=== PATIENT | female | born 1975 | race Two or more races ===

== ENCOUNTER 2023-09-08 12:47 | Emergency (ER) | payer OTHER ==
[~2023-09-08] VITALS: Ht 160 cm; Wt 106.1 kg
[~2023-09-08 12:47] MED LIST: CELEXA10 MG; SYNTHROID75 MCG
[2023-09-08 14:54] LABS: HEMATOCRIT 37.8 % (36.0-45.00); HEMOGLOBIN 12.6 g/dL (12.0-15.00); MEAN CELL VOLUME 79.5 fL (80.00-100.00); MEAN CORPUSCULAR HEMOGLOBIN 26.5 pg (27.00-32.0); MEAN CORPUSCULAR HGB CONC 33.4 g/dl (32.0-36.0); PLATELET COUNT 562 K/uL (150-450); RED BLOOD COUNT 4.76 M/uL (4.00-6.00); RED CELL DISTRIBUTION WIDTH 17.4 % (11.5-14.5)
[2023-09-08] MEDS ORDERED: METRONIDAZOLE/SODIUM CHLORIDE 500 MG/100 ML PIGGYBACK IV SCH (15:35)
[2023-09-08 15:42] LABS: PH,URINE 5.5 (5.0-8.0); URINE APPEARANCE Clear; URINE BILIRRUBIN Negative (NEGATIVE); URINE BLOOD Trace; URINE COLOR Yellow; URINE GLUCOSE Negative (NEGATIVE); URINE LEUKOCYTE Small; URINE NITRATE Negative; URINE PROTEIN Negative (NEGATIVE); URINE UROBILINOGEN 0.2 E.U./dl
[2023-09-08] MEDS ORDERED: CIPROFLOXACIN IN 5 % DEXTROSE 400 MG/200 ML PIGGYBAG IV ONE (15:45)
[2023-09-08 15:46] LABS: URINE EPITHELIAL CELLS 8.5 uL (0.0-38.8); URINE WBC 34.6 uL (0.0-23.2)
[2023-09-08 16:36] LABS: CALCIUM 9.2 mg/dL (8.5-10.1); CREATININE SERUM 0.68 mg/dL (0.55-1.02); GFR 93.57; POTASSIUM 4.16 mEq/L (3.5-5.1)
== END 2023-09-09 00:14 | disposition home or self-care (01) ==
LOC: ER 12:48
PROVIDERS: Emergency Medicine
DX: K42.9 Umbilical hernia without obstruction or gangrene (principal); N39.0 Urinary tract infection, site not specified; R10.9 Unspecified abdominal pain; E03.8 Other specified hypothyroidism; Z88.5 Allergy status to narcotic agent; Z91.013 Allergy to seafood
CPT/HCPCS: 36415; 74177; Q9965

== ENCOUNTER 2024-12-05 08:27 | Emergency (ER) | payer OTHER ==
[~2024-12-05] VITALS: Ht 160 cm; Wt 111.6 kg
[2024-12-05 09:03] VITALS: BP 137/83; O2SAT 98
[2024-12-05] MEDS ORDERED: PAXIL40 MG (09:08)
[2024-12-05] MEDS ORDERED: COZAAR25 MG (09:08)
[2024-12-05] MEDS ORDERED: SYNTHROID125 MCG (09:08)
[2024-12-05] MEDS ORDERED: LIPITOR20 MG PO (09:08)
[2024-12-05] MEDS ORDERED: BUSPIRONE HCL10 MG (09:09)
[2024-12-05] MEDS ORDERED: NEURONTIN800 MG PO (09:09)
[2024-12-05] MEDS ORDERED: RESTORIL15 M1 (09:10)
[2024-12-05] MEDS ORDERED: HYDROXYCHLOROQ200 MG PO (09:10)
[2024-12-05] MEDS ORDERED: CELEBREX400 MG (09:10)
[2024-12-05] MEDS ORDERED: JENTADUETO XR1 EACH (09:11)
[2024-12-05] MEDS ORDERED: LIPITOR20 MG (09:22)
[2024-12-05] MEDS ORDERED: NEURONTIN800 MG (09:23)
[2024-12-05] MEDS ORDERED: SOVUNA200 MG (09:24)
[2024-12-05] MEDS ORDERED: RESTORIL15 MG (09:24)
[2024-12-05] MEDS ORDERED: 0.9 % SODIUM CHLORIDE 1,000 ML IV SCH (10:15)
[2024-12-05] MEDS ORDERED: ONDANSETRON HCL 2 MG/ML VIAL IV ONE (10:15)
[2024-12-05] MEDS ORDERED: FAMOTIDINE/PF 20 MG/2 ML VIAL IV PUSH ONE (10:15)
[2024-12-05] MEDS ORDERED: ONDANSETRON HCL 2 MG/ML VIAL ONE (10:26)
[2024-12-05] MEDS ORDERED: FAMOTIDINE/PF 20 MG/2 ML VIAL ONE (10:26)
[2024-12-05 11:15] LABS: BASO % 0.5 % (0.1-1.2); EOS # 0.19 (0.04-0.54); EOS % 1.4 % (0.7-7.0); HEMATOCRIT 35.1 % (34.1-44.9); HEMOGLOBIN 11.6 g/dL (11.2-15.7); LYMPH # 2.18 (1.18-3.74); LYMPH % 16.5 % (19.3-53.1); MEAN CORPUSCULAR HEMOGLOBIN 25.4 pg (25.6-32.2); MONO # 1.07 (0.24-0.82); MONO % 8.1 % (4.7-12.5); NEUT # 9.66 (1.56-6.13); PLATELET COUNT 541 K/uL (163-369); RED BLOOD COUNT 4.56 M/uL (3.93-5.22); RED CELL DISTRIBUTION WIDTH 15.9 % (11.6-14.4)
[2024-12-05 11:47] LABS: ALBUMIN 3.6 gm/dL (3.4-5.0); BILIRUBIN TOTAL 0.99 mg/dL (0.3-1.2); CALCIUM 9.2 mg/dL (8.5-10.1); CREATININE SERUM 0.61 mg/dL (0.55-1.02); GFR 105.13; GLOBULINA 4.6 G/DL (2.4-3.5); POTASSIUM 3.77 mEq/L (3.5-5.1); TOTAL PROTEIN 8.2 gm/dL (6.4-8.2)
[2024-12-05] MEDS ORDERED: METRONIDAZOLE/SODIUM CHLORIDE 500 MG/100 ML PIGGYBACK IV ONE ×2 (14:00→14:01)
== END 2024-12-05 17:08 | disposition home or self-care (01) ==
LOC: ER 08:27
PROVIDERS: Emergency Medicine
DX: K52.89 Other specified noninfective gastroenteritis and colitis (principal); E11.9 Type 2 diabetes mellitus without complications; Z79.84 Long term (current) use of oral hypoglycemic drugs; I10 Essential (primary) hypertension; Z88.8 Allergy status to other drugs, medicaments and biological substances; Z91.013 Allergy to seafood